=== PATIENT | female | born 1955 | race Caucasian/White ===

== ENCOUNTER 2016-12-13 09:05 | Observation (INO) ==
--- NOTE | 2016-12-13 09:36 | Emergency Department Note ---
Disposition Clinical Impression: Confusion and disorientation Disposition: Admitted As Inpatient Condition: Fair Altered Mental Status HPI - General Chief Complaint: ED General Medical Stated Complaint: EPISODES OF CONFUSION Source: patient Mode of arrival: ambulatory Limitations: no limitations Nursing Notes Reviewed: Yes Vital Signs Reviewed: Yes - History of Present Illness complaint: confusion Onset (ago): day(s) (2) Timing confirmed by: family member Pain Severity: none Pain Scale: 0 Context: history of similar presentation, other (recent carotid endarterectomy) Associated symptoms: Reports: chest pain, difficulty walking. Denies: cough, diaphoresis, fever, chills, headaches, loss of appetite, malaise, nausea/ vomiting, rash, shortness of breath, syncope, weakness, foul smelling urine, diarrhea, incontinence - Related Data Home Medications Medication Instructions Recorded Confirmed Amlodipine [Amlodipine Besylate] 5 mg PO BID 08/21/15 12/13/16 Atorvastatin [Lipitor] 40 mg PO HS 08/21/15 12/13/16 Clopidogrel [Plavix] 75 mg PO DAILY 08/21/15 12/13/16 Gabapentin [Neurontin] 300 mg PO TID 08/21/15 12/13/16 Metoprolol [Lopressor] 50 mg PO BID 08/21/15 12/13/16 Omeprazole [PriLOSEC] 20 mg PO BIDAC 08/21/15 12/13/16 Bupropion HCl [Wellbutrin Xl] 300 mg PO DAILY 12/13/16 12/13/16 Loratadine [Claritin] 10 mg PO DAILY 12/13/16 12/13/16 Previous Rx's Medication Instructions Recorded Albuterol Sulfate [Albuterol 1 - 2 puff IH Q4-6H #1 inhaler 06/27/16 Inhaler] Allergies Allergy/AdvReac Type Severity Reaction Status Date / Time Sulfa (Sulfonamide AdvReac Itching Verified 08/21/15 14:50 Antibiotics) All systems ED: reviewed and negative except as stated. Constitutional: Reports: weakness. Denies: fever, chills Eyes: Denies: eye pain ENT ED: Denies: ear pain, throat pain Cardiovascular: Denies: chest pain Respiratory: Denies: cough, dyspnea Gastrointestinal: Denies: nausea, vomiting Genitourinary: Denies: urgency, dysuria Musculoskeletal: Denies: neck pain Integumentary: Denies: abrasion Neurological: Reports: confusion, abnormal gait. Denies: headache Psychiatric: Denies: anxiety Endocrine: Denies: heat or cold intolerance Hematological/Lymphatic: Denies: easy bleeding Allergic/Immunologic: Denies: urticaria Past Medical History - Past Medical History Attestation: Yes The following information was validated with the patient. 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: bilateral tubal ligation - Social History Smoking Status: Former smoker Smokeless Tobacco Status: No Alcohol use: Reports: none Drug use: Reports: none Physical Exam - General Limitations: no limitations General appearance: alert, in no apparent distress, anxious, other (At times mildly confused) - Head Head exam: atraumatic, normocephalic, normal inspection - Eye Eye exam: Present: normal appearance, PERRL, EOMI - ENT ENT exam: normal exam, normal oropharynx, mucous membranes moist, normal external ear exam - Neck Neck exam: Present: normal inspection, full ROM, trachea midline, other ( surgical incision intact withoutredness or drainage) - Chest Chest inspection: Present: normal inspection, symmetric chest wall rise - Respiratory Respiratory exam: Present: normal lung sounds bilaterally - Cardiovascular Cardiovascular exam: Present: regular rate, normal rhythm, normal heart sounds - Abdominal Exam Abdominal exam: Present: soft, Non-Tender, normal bowel sounds. Absent: mass, pulsatile mass - Extremities Exam Extremities exam: Present: normal inspection, full ROM, normal capillary refill. Absent: tenderness, joint swelling - Expanded Lower Extremity Exam Neurovascular/Tendon exam: Present: normal capillary refill, normal fine/light touch Gait: observed and normal - Back Exam Back exam: Present: normal inspection, full ROM. Absent: muscle spasm - Neurological Exam Neurological exam: Present: alert, oriented X3, CN II-XII intact, normal gait - Psychiatric Psychiatric exam: Present: normal affect, normal mood - Skin Skin exam: Present: warm, dry, intact, normal color Course Course Narrative: Patient presents to the emergency room with family at bedside with ataxia noted which appears to be new for her last known well time is greater than 24 hours patient has previous time when she is confused she has recently been to [facility] patient states that she just does not feel right she has had some intermittent chest pain she was due to have a heart cath family notes that her that with her changes they will continue back to [address] [place] [address] but they brought her here instead patient is here for evaluation Vital Signs Temperature 97.9 F 12/13/16 09:07 Pulse Rate 67 12/13/16 09:07 Respiratory Rate 16 12/13/16 09:07 Blood Pressure 151/88 12/13/16 09:07 O2 Sat by Pulse Oximetry 100 12/13/16 09:07 Temperature 98.3 F 12/15/16 18:30 Pulse Rate 76 12/15/16 18:30 Respiratory Rate 18 12/15/16 18:30 Blood Pressure 129/82 12/15/16 18:30 O2 Sat by Pulse Oximetry 91 12/15/16 18:30 Oxygen Delivery Oxygen Delivery Room Air Altered Mental Status - Lab Data Result diagrams: 12/15/16 04:10 12/15/16 04:10 Lab Results 12/13/16 12/13/16 12/13/16 Range/Units 09:16 09:40 09:40 WBC (4.3-11.1) K/mcL RBC (3.82-4.97) M/mcL Hgb (11.5-15.4) g/dL Hct (35.3-44.9) % MCV (83.0-100.0) fL MCH (28.0-33.3) pg MCHC (31.6-35.5) g/dL RDW (11.5-14.5) % Plt Count (140-400) K/mcL MPV (9.4-12.4) fL Immature Gran % (0-4) % Seg Neutrophils % % Lymphocytes % % Monocytes % % Eosinophils % % Basophils % % Neutrophils # (1.6-8.9) K/mcL Lymphocytes # (0.6-4.6) K/mcL Monocytes # (0.0-1.3) K/mcL Eosinophils # (0.0-0.6) K/mcL Basophils # (0.0-0.2) K/mcL PT 12.0 (9.4-12.1) Seconds INR 1.1 APTT (26.0-36.0) Seconds ABG pH 7.40 (7.32-7.45) pH Units ABG pCO2 37 (35-45) mmHg ABG pO2 76 L (85-104) mmHg ABG HCO3 23.1 (21-27) mEQ/L ABG Total CO2 24.3 (20-26) mEq/L ABG O2 Saturation 95 (95-98) % ABG Base Excess -1.6 (-2.0 to 3.0) mEq/L VBG Lactic Acid (0.5-2.2) mmol/L Inspired O2 21 % Sodium (136-145) mEq/L Potassium (3.5-4.5) mEq/L Chloride (98-109) mEq/L Carbon Dioxide (19-29) mEq/L BUN (7-20) mg/dL Creatinine (0.57-1.11) mg/dL Est GFR ( Amer) (> 60) Est GFR (Non-Af Amer) (> 60) BUN/Creatinine Ratio (6-26) Glucose (70-99) mg/dL Calculated Osmolality (280-300) Calcium (8.6-10.8) mg/dL Total Bilirubin (0.2-1.2) mg/dL AST (5-34) Units/L ALT (0-55) Units/L Alkaline Phosphatase (38-126) Units/L Ammonia (18-72) mcmol/L Troponin I 0.01 (0-0.03) ng/mL Serum Total Protein (6.0-8.3) g/dL Albumin (3.5-5.0) g/dL Globulin (2.4-3.5) g/dL Albumin/Globulin Ratio (1.1-2.2) TSH (0.350-4.840) mcIU/mL Urine Color (Yellow) Urine Clarity (Clear) Urine pH (5.0-8.0) pH Units Ur Specific [place] (1.010-1.025) Urine Protein (Neg-Trace) mg/dL Urine Glucose (UA) (Normal) mg/dL Urine Ketones (Negative) mg/dL Urine Blood (Negative) Urine Nitrite (Negative) Urine Bilirubin (Negative) Urine Urobilinogen (Normal) mg/dL Ur Leukocyte Esterase (Negative) Urine Microscopic WBC (0-3) per hpf Ur Squamous Epith Cells (None-Few) per lpf Urine Bacteria (None-Few) per hpf Ur Culture Indicated? (NO) Salicylates (15-30) mg/dL Urine Opiates Screen (Djfnqm=154) ng/mL Ur Oxycodone Screen (Cutoff= 100) ng/mL Acetaminophen (10-30) mcg/mL Ur Barbiturates Screen (Arwlwf=190) ng/mL Ur Phencyclidine Scrn (Cutoff=25) ng/mL Ur Amphetamines Screen (Dbzlmt=5553) ng/mL U Benzodiazepines Scrn (Yiuwit=809) ng/mL Urine Cocaine Screen (Cutoff= 300) ng/mL U Marijuana (THC) Screen (Cutoff = 50) ng/mL Ethyl Alcohol (0-10) mg/dL 12/13/16 12/13/16 12/13/16 Range/Units 09:40 09:40 09:40 WBC 5.7 (4.3-11.1) K/mcL RBC 3.41 L (3.82-4.97) M/mcL Hgb 9.1 L (11.5-15.4) g/dL Hct 28.6 L (35.3-44.9) % MCV 83.9 (83.0-100.0) fL MCH 26.7 L (28.0-33.3) pg MCHC 31.8 (31.6-35.5) g/dL RDW 14.7 H (11.5-14.5) % Plt Count 330 (140-400) K/mcL MPV 9.9 (9.4-12.4) fL Immature Gran % 0.2 (0-4) % Seg Neutrophils % 65.1 % Lymphocytes % 22.6 % Monocytes % 5.6 % Eosinophils % 5.8 % Basophils % 0.7 % Neutrophils # 3.7 (1.6-8.9) K/mcL Lymphocytes # 1.3 (0.6-4.6) K/mcL Monocytes # 0.3 (0.0-1.3) K/mcL Eosinophils # 0.3 (0.0-0.6) K/mcL Basophils # 0.0 (0.0-0.2) K/mcL PT (9.4-12.1) Seconds INR APTT 26.3 (26.0-36.0) Seconds ABG pH (7.32-7.45) pH Units ABG pCO2 (35-45) mmHg ABG pO2 (85-104) mmHg ABG HCO3 (21-27) mEQ/L ABG Total CO2 (20-26) mEq/L ABG O2 Saturation (95-98) % ABG Base Excess (-2.0 to 3.0) mEq/L VBG Lactic Acid (0.5-2.2) mmol/L Inspired O2 % Sodium 138 (136-145) mEq/L Potassium 4.4 (3.5-4.5) mEq/L Chloride 104 (98-109) mEq/L Carbon Dioxide 23 (19-29) mEq/L BUN 25 H (7-20) mg/dL Creatinine 1.54 H (0.57-1.11) mg/dL Est GFR ( Amer) 41 L (> 60) Est GFR (Non-Af Amer) 34 L (> 60) BUN/Creatinine Ratio 16 (6-26) Glucose 87 (70-99) mg/dL Calculated Osmolality 290 (280-300) Calcium 9.9 (8.6-10.8) mg/dL Total Bilirubin 0.3 (0.2-1.2) mg/dL AST 17 (5-34) Units/L ALT 12 (0-55) Units/L Alkaline Phosphatase 89 (38-126) Units/L Ammonia (18-72) mcmol/L Troponin I (0-0.03) ng/mL Serum Total Protein 7.4 (6.0-8.3) g/dL Albumin 4.1 (3.5-5.0) g/dL Globulin 3.3 (2.4-3.5) g/dL Albumin/Globulin Ratio 1.2 (1.1-2.2) TSH (0.350-4.840) mcIU/mL Urine Color (Yellow) Urine Clarity (Clear) Urine pH (5.0-8.0) pH Units Ur Specific [place] (1.010-1.025) Urine Protein (Neg-Trace) mg/dL Urine Glucose (UA) (Normal) mg/dL Urine Ketones (Negative) mg/dL Urine Blood (Negative) Urine Nitrite (Negative) Urine Bilirubin (Negative) Urine Urobilinogen (Normal) mg/dL Ur Leukocyte Esterase (Negative) Urine Microscopic WBC (0-3) per hpf Ur Squamous Epith Cells (None-Few) per lpf Urine Bacteria (None-Few) per hpf Ur Culture Indicated? (NO) Salicylates (15-30) mg/dL Urine Opiates Screen (Nuocke=972) ng/mL Ur Oxycodone Screen (Cutoff= 100) ng/mL Acetaminophen (10-30) mcg/mL Ur Barbiturates Screen (Xxmdrz=002) ng/mL Ur Phencyclidine Scrn (Cutoff=25) ng/mL Ur Amphetamines Screen (Uzgspa=6610) ng/mL U Benzodiazepines Scrn (Xiiali=305) ng/mL Urine Cocaine Screen (Cutoff= 300) ng/mL U Marijuana (THC) Screen (Cutoff = 50) ng/mL Ethyl Alcohol (0-10) mg/dL 12/13/16 12/13/16 12/13/16 Range/Units 09:40 09:40 09:40 WBC (4.3-11.1) K/mcL RBC (3.82-4.97) M/mcL Hgb (11.5-15.4) g/dL Hct (35.3-44.9) % MCV (83.0-100.0) fL MCH (28.0-33.3) pg MCHC (31.6-35.5) g/dL RDW (11.5-14.5) % Plt Count (140-400) K/mcL MPV (9.4-12.4) fL Immature Gran % (0-4) % Seg Neutrophils % % Lymphocytes % % Monocytes % % Eosinophils % % Basophils % % Neutrophils # (1.6-8.9) K/mcL Lymphocytes # (0.6-4.6) K/mcL Monocytes # (0.0-1.3) K/mcL Eosinophils # (0.0-0.6) K/mcL Basophils # (0.0-0.2) K/mcL PT (9.4-12.1) Seconds INR APTT (26.0-36.0) Seconds ABG pH (7.32-7.45) pH Units ABG pCO2 (35-45) mmHg ABG pO2 (85-104) mmHg ABG HCO3 (21-27) mEQ/L ABG Total CO2 (20-26) mEq/L ABG O2 Saturation (95-98) % ABG Base Excess (-2.0 to 3.0) mEq/L VBG Lactic Acid 1.0 (0.5-2.2) mmol/L Inspired O2 % Sodium (136-145) mEq/L Potassium (3.5-4.5) mEq/L Chloride (98-109) mEq/L Carbon Dioxide (19-29) mEq/L BUN (7-20) mg/dL Creatinine (0.57-1.11) mg/dL Est GFR ( Amer) (> 60) Est GFR (Non-Af Amer) (> 60) BUN/Creatinine Ratio (6-26) Glucose (70-99) mg/dL Calculated Osmolality (280-300) Calcium (8.6-10.8) mg/dL Total Bilirubin (0.2-1.2) mg/dL AST (5-34) Units/L ALT (0-55) Units/L Alkaline Phosphatase (38-126) Units/L Ammonia 17 L (18-72) mcmol/L Troponin I (0-0.03) ng/mL Serum Total Protein (6.0-8.3) g/dL Albumin (3.5-5.0) g/dL Globulin (2.4-3.5) g/dL Albumin/Globulin Ratio (1.1-2.2) TSH (0.350-4.840) mcIU/mL Urine Color (Yellow) Urine Clarity (Clear) Urine pH (5.0-8.0) pH Units Ur Specific [place] (1.010-1.025) Urine Protein (Neg-Trace) mg/dL Urine Glucose (UA) (Normal) mg/dL Urine Ketones (Negative) mg/dL Urine Blood (Negative) Urine Nitrite (Negative) Urine Bilirubin (Negative) Urine Urobilinogen (Normal) mg/dL Ur Leukocyte Esterase (Negative) Urine Microscopic WBC (0-3) per hpf Ur Squamous Epith Cells (None-Few) per lpf Urine Bacteria (None-Few) per hpf Ur Culture Indicated? (NO) Salicylates 8.6 L (15-30) mg/dL Urine Opiates Screen (Gdvuuq=868) ng/mL Ur Oxycodone Screen (Cutoff= 100) ng/mL Acetaminophen < 1.0 L (10-30) mcg/mL Ur Barbiturates Screen (Clflwv=952) ng/mL Ur Phencyclidine Scrn (Cutoff=25) ng/mL Ur Amphetamines Screen (Ovddlw=6832) ng/mL U Benzodiazepines Scrn (Dmpesk=576) ng/mL Urine Cocaine Screen (Cutoff= 300) ng/mL U Marijuana (THC) Screen (Cutoff = 50) ng/mL Ethyl Alcohol < 10 (0-10) mg/dL 12/13/16 12/13/16 12/13/16 Range/Units 09:40 10:27 10:27 WBC (4.3-11.1) K/mcL RBC (3.82-4.97) M/mcL Hgb (11.5-15.4) g/dL Hct (35.3-44.9) % MCV (83.0-100.0) fL MCH (28.0-33.3) pg MCHC (31.6-35.5) g/dL RDW (11.5-14.5) % Plt Count (140-400) K/mcL MPV (9.4-12.4) fL Immature Gran % (0-4) % Seg Neutrophils % % Lymphocytes % % Monocytes % % Eosinophils % % Basophils % % Neutrophils # (1.6-8.9) K/mcL Lymphocytes # (0.6-4.6) K/mcL Monocytes # (0.0-1.3) K/mcL Eosinophils # (0.0-0.6) K/mcL Basophils # (0.0-0.2) K/mcL PT (9.4-12.1) Seconds INR APTT (26.0-36.0) Seconds ABG pH (7.32-7.45) pH Units ABG pCO2 (35-45) mmHg ABG pO2 (85-104) mmHg ABG HCO3 (21-27) mEQ/L ABG Total CO2 (20-26) mEq/L ABG O2 Saturation (95-98) % ABG Base Excess (-2.0 to 3.0) mEq/L VBG Lactic Acid (0.5-2.2) mmol/L Inspired O2 % Sodium (136-145) mEq/L Potassium (3.5-4.5) mEq/L Chloride (98-109) mEq/L Carbon Dioxide (19-29) mEq/L BUN (7-20) mg/dL Creatinine (0.57-1.11) mg/dL Est GFR ( Amer) (> 60) Est GFR (Non-Af Amer) (> 60) BUN/Creatinine Ratio (6-26) Glucose (70-99) mg/dL Calculated Osmolality (280-300) Calcium (8.6-10.8) mg/dL Total Bilirubin (0.2-1.2) mg/dL AST (5-34) Units/L ALT (0-55) Units/L Alkaline Phosphatase (38-126) Units/L Ammonia (18-72) mcmol/L Troponin I (0-0.03) ng/mL Serum Total Protein (6.0-8.3) g/dL Albumin (3.5-5.0) g/dL Globulin (2.4-3.5) g/dL Albumin/Globulin Ratio (1.1-2.2) TSH 1.584 (0.350-4.840) mcIU/mL Urine Color Yellow (Yellow) Urine Clarity Clear (Clear) Urine pH 6.0 (5.0-8.0) pH Units Ur Specific [place] 1.020 (1.010-1.025) Urine Protein 30 H (Neg-Trace) mg/dL Urine Glucose (UA) Normal (Normal) mg/dL Urine Ketones Negative (Negative) mg/dL Urine Blood Negative (Negative) Urine Nitrite Negative (Negative) Urine Bilirubin Negative (Negative) Urine Urobilinogen Normal (Normal) mg/dL Ur Leukocyte Esterase Negative (Negative) Urine Microscopic WBC 0-3 (0-3) per hpf Ur Squamous Epith Cells Few (None-Few) per lpf Urine Bacteria Few (None-Few) per hpf Ur Culture Indicated? NO (NO) Salicylates (15-30) mg/dL Urine Opiates Screen Negative (Wxiwhl=869) ng/mL Ur Oxycodone Screen Negative (Cutoff= 100) ng/mL Acetaminophen (10-30) mcg/mL Ur Barbiturates Screen Negative (Hntwbi=562) ng/mL Ur Phencyclidine Scrn Negative (Cutoff=25) ng/mL Ur Amphetamines Screen Negative (Vfuzpo=4660) ng/mL U Benzodiazepines Scrn Negative (Bitjnq=870) ng/mL Urine Cocaine Screen Negative (Cutoff= 300) ng/mL U Marijuana (THC) Screen Negative (Cutoff = 50) ng/mL Ethyl Alcohol (0-10) mg/dL - Radiology Data Radiology results reviewed: Yes I reviewed the patient's radiology results. ITS Impressions Chest X-Ray 12/13/16 09:15 IMPRESSION: No acute cardiopulmonary disease. D/ / David Wesley MD / David Wesley MD Interpreting Provider: David Wesley MD Head CT 12/13/16 09:15 IMPRESSION: 1. No acute intracranial abnormality. 2. Mild chronic small vessel ischemic changes. D/ / David Ames MD / David Ames MD Interpreting Provider: David Ames MD - EKG Data EKG attestation: Yes I reviewed and interpreted this EKG. EKG results narrative: Sinus rhythm rate 63 pr187 qrs 93 QT 432 excess 54 TPA Checklist - LKW: 3-4.5 hrs Add. Contraindications Patient/family understanding: The patient/family members have been counseled and understood the risk, benefit , and alternatives of treatment. Critical Care Time Critical Care Time: No
[2016-12-13 10:03] LABS: Basophils % 0.7 %; Eosinophils # 0.3 K/mcL (0.0-0.6); Eosinophils % 5.8 %; Hematocrit 28.6 % (35.3-44.9); Hemoglobin 9.1 g/dL (11.5-15.4); Immature Granulocytes % 0.2 % (0-4); Lymphocytes # 1.3 K/mcL (0.6-4.6); Lymphocytes % 22.6 %; Mean Corpuscular HGB Conc 31.8 g/dL (31.6-35.5); Mean Corpuscular Hemoglobin 26.7 pg (28.0-33.3); Mean Corpuscular Volume 83.9 fL (83.0-100.0); Mean Platelet Volume 9.9 fL (9.4-12.4); Monocytes # 0.3 K/mcL (0.0-1.3); Monocytes % 5.6 %; Neutrophils # 3.7 K/mcL (1.6-8.9); Platelet Count 330 K/mcL (140-400); Red Blood Count 3.41 M/mcL (3.82-4.97); Red Cell Distribution Width 14.7 % (11.5-14.5); Segmented Neutrophils % 65.1 %
[2016-12-13 10:08] LABS: INR 1.1
[2016-12-13 10:19] LABS: Acetaminophen < 1.0 mcg/mL (10-30); Ethanol < 10 mg/dL (0-10); Salicylate 8.6 mg/dL (15-30)
[2016-12-13 10:19] LABS: ABG Base Excess -1.6 mEq/L (-2.0 to 3.0); ABG HCO3 23.1 mEQ/L (21-27); ABG Oxygen Saturation 95 % (95-98); ABG PO2 76 mmHg (85-104); ABG TCO2 24.3 mEq/L (20-26); Blood Gas FiO2 21 %
[2016-12-13 10:21] LABS: Albumin 4.1 g/dL (3.5-5.0); Albumin/Globulin Ratio 1.2 (1.1-2.2); Bilirubin,Total 0.3 mg/dL (0.2-1.2); Calcium 9.9 mg/dL (8.6-10.8); Globulin 3.3 g/dL (2.4-3.5); Potassium 4.4 mEq/L (3.5-4.5); Total Protein 7.4 g/dL (6.0-8.3)
[2016-12-13 10:31] LABS: Bilirubin,Urine Negative (Negative); Blood,Urine Negative (Negative); Clarity,Urine Clear (Clear); Color,Urine Yellow (Yellow); Glucose,Urine (UA) Normal (Normal); Ketones,Urine Negative (Negative); Leukocyte Esterase,Urine Negative (Negative); Nitrite,Urine Negative (Negative); Protein,Urine 30 mg/dL (Neg-Trace); Urobilinogen,Urine Normal (Normal)
[2016-12-13 10:45] LABS: Amphetamine Screen,Urine Negative ng/mL (Cutoff=1000); Barbiturate Screen,Urine Negative ng/mL (Cutoff=200); Benzodiazepines Screen,Urine Negative ng/mL (Cutoff=200); Cannabinoid Screen,Urine Negative ng/mL (Cutoff = 50); Cocaine Screen,Urine Negative ng/mL (Cutoff= 300); Opiate Screen,Urine Negative ng/mL (Cutoff=300); Phencyclidine Screen,Urine Negative ng/mL (Cutoff=25)
[2016-12-13 10:51] LABS: Bacteria,Urine Few per hpf (None-Few); Squamous Epithelial Cell,Urine Few per lpf (None-Few); WBC,Urine 0-3 per hpf (0-3)
[2016-12-13 11:48] LABS: ABG PCO2 37 mmHg (35-45)
[2016-12-13] MEDS ORDERED: Naloxone 0.4 MG/ML INJ IVP PRN (12:06)
[2016-12-13] MEDS ORDERED: Ondansetron ODT 4 MG TAB.RAPDIS SL PRN (12:06)
[2016-12-13] MEDS: Gabapentin 300 MG CAPSULE PO SCH ×2 (14:40→20:15)
--- NOTE | 2016-12-13 16:53 | Internal Med History&Physical ---
Date of Encounter: 12/13/16 Time of Encounter: 16:15 Assessment and Plan (1) Confusion and disorientation Current visit: Yes Status: Acute We will do MMSE exam. Suspect underlying dementia with possible superimposed metabolic and/or medication effects. (2) Anemia Current visit: Yes Status: Acute Hemoglobin was normal at 14.07 June 2016. We will order anemia testing in a.m. Qualifiers: Anemia type: unspecified type Qualified Code(s): D64.9 - Anemia, unspecified (3) Azotemia Current visit: Yes Status: Acute Creatinine was normal at 0.97 on 07/05/2016. We will order abdominal CT to further evaluate (4) COPD (chronic obstructive pulmonary disease) Current visit: Yes Status: Chronic Will order chest CT to further evaluate. We will check room air oximetry prior to discharge. Qualifiers: COPD type: unspecified COPD Qualified Code(s): J44.9 - Chronic obstructive pulmonary disease, unspecified (5) Hypertension Current visit: Yes Status: Chronic Continue Norvasc and Lopressor. Qualifiers: Hypertension type: essential hypertension Qualified Code(s): I10 - Essential (primary) hypertension Internal Medicine - H&P: HPI Chief complaint: Confusion, lightheaded Admitted From: Home Plans for Post Hospital Care: Home History of present illness: Ms. Carney is a 60 year old female who came to the hospital after family noted she was more confused and disoriented. She states she felt "dizzy" which she describes as lightheaded but denies vertigo. She states she feels disoriented. She was evaluated in emergency room and admitted to [facility] floor for ongoing care needs. She has neurologic history pertinent for left carotid endarterectomy at [facility] . She denies large distribution strokes or seizures. She admits she seems to be getting more forgetful overall but she denies any specific weakness of an arm or leg or acute visual changes. Past Med Surg Social Fam HX - Past Medical History Medical history: COPD, coronary artery disease, GERD, hyperlipidemia, hypertension, myocardial infarction, renal disease, TIA Psychiatric history: anxiety, depression - Past Surgical History Surgical History: appendectomy, carotid endarterectomy, orthopedic, other - Social History Smoking Status: Former smoker Smokeless Tobacco Status: No Alcohol use: none Drug use: none Internal Medicine - H&P: Meds Amlodipine [Amlodipine Besylate] 5 mg PO BID 08/21/15 [History] Atorvastatin [Lipitor] 40 mg PO HS 08/21/15 [History] Clopidogrel [Plavix] 75 mg PO DAILY 08/21/15 [History] Gabapentin [Neurontin] 300 mg PO TID 08/21/15 [History] Metoprolol [Lopressor] 50 mg PO BID 08/21/15 [History] Omeprazole [PriLOSEC] 20 mg PO BIDAC 08/21/15 [History] Albuterol Sulfate [Albuterol Inhaler] 1 - 2 puff IH Q4-6H #1 inhaler 06/27/16 [ Rx] Bupropion HCl [Wellbutrin Xl] 300 mg PO DAILY 12/13/16 [History] Loratadine [Claritin] 10 mg PO DAILY 12/13/16 [History] Allergies Sulfa (Sulfonamide Antibiotics) Adverse Reaction (Verified 08/21/15 14:50) Itching All Systems PM: A 10-system review of systems was performed and is negative for pertinent findings except as documented above in the HPI. Review of systems: Gen.: She states her weight has been stable the past few months Cardiovascular: She has history of hypertension. She states she had a coronary stent placed over 10 years ago but does not remember details. She has had left subclavian artery stent placed. She had bilateral renal artery stents placed but states they are not functioning properly. She denies [place] heart failure DVT or pulmonary embolus Respiratory: She states she quit smoking July 2016 after starting at age 21. She smoked up to 1-1/2 packs per day. She claims she has a diagnosis of COPD but does not recall having PFTs done. She does get dyspneic on exertion. GI: She states she had partial nephrectomy but does not remember details. She denies a diagnosis of chronic kidney disease Neurologic: As per history of present illness Endocrine: She has hyperlipidemia but denies diabetes or thyroid disease Hematology/oncology: She is been told she is anemic but does not know details. She denies internal malignancies Psychiatric: She denies anxiety depression or other mental health issues Musk skeletal: She has DJD but denies gout or other bone joint or muscle disorders. - Constitutional Vitals: Temp Pulse Resp BP Pulse Ox 98.4 F 76 16 173/86 97 12/13/16 12:41 12/13/16 12:41 12/13/16 15:59 12/13/16 12:41 12/13/16 15:59 Exam: Gen.: She is well-developed well-nourished female who appears in no acute distress at present time HEENT: Head is atraumatic and normal cephalic. Eyes: EOMI. There is no scleral icterus. Mouth: Mucosa is moist. Neck: Supple and nontender. There is no thyromegaly or adenopathy noted. Heart: Regular without murmurs gallops or ectopics. Lungs: No wheezes or crackles are heard. Abdomen: Soft and nontender. No masses or guarding are noted. Extremities: She has mild DJD changes of her hands. There is no cyanosis edema or clubbing noted. Dorsalis pedis and posttibial pulses are 1-2 over 2 bilaterally. Neurologic: Mental status: She is talkative but a fair to poor historian. She does not remember many details of her past medical history. Cranial nerves: Smile is symmetric. Forehead wrinkles bilaterally. Tongue protrudes midline. EOMI. Motor: There is no pronator drift. Cerebellar: Finger to nose is intact bilaterally. Skin: Warm and dry Internal Med - H&P Results - Labs CBC & Chem 7: 12/13/16 09:40 12/13/16 09:40 Labs: Cardiac Enzymes 12/13/16 Range/Units 15:40 Troponin I 0.01 (0-0.03) ng/mL
[2016-12-14 06:08] LABS: Basophils % 0.4 %; Eosinophils # 0.5 K/mcL (0.0-0.6); Hematocrit 24.8 % (35.3-44.9); Hemoglobin 7.8 g/dL (11.5-15.4); Immature Granulocytes % 0.2 % (0-4); Lymphocytes # 1.6 K/mcL (0.6-4.6); Lymphocytes % 36.1 %; Mean Corpuscular HGB Conc 31.5 g/dL (31.6-35.5); Mean Corpuscular Hemoglobin 26.5 pg (28.0-33.3); Mean Corpuscular Volume 84.4 fL (83.0-100.0); Mean Platelet Volume 10.1 fL (9.4-12.4); Monocytes # 0.5 K/mcL (0.0-1.3); Neutrophils # 1.9 K/mcL (1.6-8.9); Platelet Count 251 K/mcL (140-400); Red Blood Count 2.94 M/mcL (3.82-4.97); Red Cell Distribution Width 14.9 % (11.5-14.5); Segmented Neutrophils % 43.3 %
[2016-12-14 07:00] LABS: Magnesium 2.3 mg/dL (1.6-2.6); Phosphorous 3.9 mg/dL (2.3-4.7); Potassium 4.5 mEq/L (3.5-4.5)
[2016-12-14] MEDS: amLODIPine 5 MG TABLET PO SCH (08:45)
[2016-12-14] MEDS: Gabapentin 300 MG CAPSULE PO SCH ×3 (08:45→22:24)
[2016-12-14] MEDS: BuPROPion XL (24 HR) 150 MG TABLET PO SCH (08:46)
--- NOTE | 2016-12-14 08:51 | Electrocardiograph Report ---
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
[2016-12-14] MEDS ORDERED: Loratadine 10 MG TABLET PO SCH (09:00)
--- NOTE | 2016-12-14 10:06 | Internal Med Progress Note ---
Date of Encounter: 12/14/16 Time of Encounter: 09:55 - Assessment and plan (1) Confusion and disorientation Current Visit: Yes Status: Acute Assessment and plan: December 14. It appears she has mild dementia. Will start Aricept. (2) Anemia Current Visit: Yes Status: Acute Assessment and plan: December 14. Anemia testing is pending. Hemoglobin has decreased to 7.8 with IV fluid administration. Recheck labs in a.m. Qualifiers: Anemia type: unspecified type Qualified Code(s): D64.9 - Anemia, unspecified (3) Azotemia Current Visit: Yes Status: Acute Assessment and plan: December 14. Creatinine has improved to 1.36 with estimated GFR 39. Abdominal/ pelvic CT showed bladder distention. We will do bladder scan and possibly insert catheter. Recheck labs in a.m. (4) COPD (chronic obstructive pulmonary disease) Current Visit: Yes Status: Chronic Assessment and plan: December 14. Chest CT showed findings consistent with emphysema. Results of 6 minute walk are pending. Anticipate discharge home tomorrow. Qualifiers: COPD type: unspecified COPD Qualified Code(s): J44.9 - Chronic obstructive pulmonary disease, unspecified (5) Hypertension Current Visit: Yes Status: Chronic Assessment and plan: December 14. Continue Norvasc and Lopressor. Qualifiers: Hypertension type: essential hypertension Qualified Code(s): I10 - Essential (primary) hypertension - Subjective Interval history: December 14. She has no new complaints. - Constitutional Vitals: Temp Pulse Resp BP Pulse Ox 98.5 F 68 14 116/78 94 12/14/16 06:33 12/14/16 08:44 12/14/16 08:44 12/14/16 08:44 12/14/16 08:44 Exam: She is resting comfortably in bed. Her affect is cheerful. She answers questions generally appropriate. I reviewed her MMSE was score of 21/30. I reviewed her chest and abdomen/pelvis CT report. Internal Medicine: Result - Labs CBC & Chem 7: 12/14/16 05:30 12/14/16 05:30 Labs: Short CBC 12/14/16 Range/Units 05:30 WBC 4.5 (4.3-11.1) K/mcL Hgb 7.8 L (11.5-15.4) g/dL Hct 24.8 L (35.3-44.9) % Plt Count 251 (140-400) K/mcL Neutrophils # 1.9 (1.6-8.9) K/mcL BMP 12/14/16 05:30 Sodium 139 Potassium 4.5 Chloride 108 Carbon Dioxide 23 BUN 25 H Creatinine 1.36 H Glucose 87 Calcium 9.0 Cardiac Enzymes 12/13/16 12/13/16 Range/Units 15:40 21:33 Troponin I 0.01 0.01 (0-0.03) ng/mL - ABG Interpretation ABG results: ABG ABG pH 7.40 pH Units (7.32-7.45) 12/13/16 09:16 ABG pCO2 37 mmHg (35-45) 12/13/16 09:16 ABG pO2 76 mmHg (85-104) L 12/13/16 09:16 ABG O2 Saturation 95 % (95-98) 12/13/16 09:16 PT/INR, D-dimer PT 12.0 Seconds (9.4-12.1) 12/13/16 09:40 - Impressions Impressions Abdomen/Pelvis CT 12/13/16 17:07 IMPRESSION: 1. Study is limited without the use of IV contrast. Otherwise no acute findings within the chest, abdomen or pelvis. 2. Severe emphysematous changes. 3. Postsurgical changes from prior right partial nephrectomy. 4. Large amount of stool seen throughout the right colon. 5. Markedly distended bladder. 6. Focal fusiform infrarenal abdominal aortic aneurysm measuring up to 3.1 cm. Please see recommendations below. RECOMMENDATIONS: Managing Abdominal Aortic Aneurysms 2.6-2.9 cm: 5 year follow up. 3.0-3.4 cm: 3 year follow up 3.5-3.9 cm: 1 year follow up. 4.0-4.4 cm: 1 year follow up. Recommend vascular consultation. 4.5-5.4 cm: 6 month follow up. Recommend vascular consultation. Greater than or equal to 5.5 cm: Referral to vascular surgeon. Reference: Rico et al. The care of patients with an abdominal aortic aneurysm: The Society of Vascular Surgery practice guidelines. Journal of Vascular Surgery. Vol 50, Number 85. Cami et al. Managing Incidental Findings on Abdominal and Pelvic CT and MRI, Part 2: White Paper of the ACR Incidental Findings Committee II on Vascular Findings. J Am Jacob Radiol 2013;10:789-794 D/ / 12/13/2016 20:21:40 Shade Perez MD / sudhir Interpreting Provider: Shade Perez MD Chest CT 12/13/16 17:07 IMPRESSION: 1. Study is limited without the use of IV contrast. Otherwise no acute findings within the chest, abdomen or pelvis. 2. Severe emphysematous changes. 3. Postsurgical changes from prior right partial nephrectomy. 4. Large amount of stool seen throughout the right colon. 5. Markedly distended bladder. 6. Focal fusiform infrarenal abdominal aortic aneurysm measuring up to 3.1 cm. Please see recommendations below. RECOMMENDATIONS: Managing Abdominal Aortic Aneurysms 2.6-2.9 cm: 5 year follow up. 3.0-3.4 cm: 3 year follow up 3.5-3.9 cm: 1 year follow up. 4.0-4.4 cm: 1 year follow up. Recommend vascular consultation. 4.5-5.4 cm: 6 month follow up. Recommend vascular consultation. Greater than or equal to 5.5 cm: Referral to vascular surgeon. Reference: Rico et al. The care of patients with an abdominal aortic aneurysm: The Society of Vascular Surgery practice guidelines. Journal of Vascular Surgery. Vol 50, Number 85. Cami et al. Managing Incidental Findings on Abdominal and Pelvic CT and MRI, Part 2: White Paper of the ACR Incidental Findings Committee II on Vascular Findings. J Am Jacob Radiol 2013;10:789-794 D/ / 12/13/2016 20:21:40 Shade Perez MD / sudhir Interpreting Provider: Shade Perez MD Consult Discharge Plan - Plan Referrals: Helio Alexander MD [Primary Care Provider] -
[2016-12-14 10:09] LABS: % Iron Saturation 4 % (15-50); Iron 14 mcg/dL (50-170); Transferrin 275 mg/dL (180-382)
[2016-12-14 10:26] LABS: Ferritin 9 ng/ml (5-204)
[2016-12-14 10:43] LABS: Folate 15.1 ng/mL (7.0-31.4)
[2016-12-14] MEDS ORDERED: Acetaminophen 325 MG TABLET PO PRN (21:26)
[2016-12-15 04:54] LABS: Basophils % 0.4 %; Eosinophils # 0.4 K/mcL (0.0-0.6); Eosinophils % 7.4 %; Hemoglobin 7.5 g/dL (11.5-15.4); Immature Granulocytes % 0.2 % (0-4); Lymphocytes # 1.6 K/mcL (0.6-4.6); Lymphocytes % 29.7 %; Mean Corpuscular HGB Conc 32.6 g/dL (31.6-35.5); Mean Corpuscular Volume 82.7 fL (83.0-100.0); Monocytes # 0.7 K/mcL (0.0-1.3); Monocytes % 12.9 %; Neutrophils # 2.6 K/mcL (1.6-8.9); Platelet Count 220 K/mcL (140-400); Red Blood Count 2.78 M/mcL (3.82-4.97); Red Cell Distribution Width 14.7 % (11.5-14.5); Segmented Neutrophils % 49.4 %
[2016-12-15 05:01] LABS: Calcium 8.8 mg/dL (8.6-10.8); Potassium 4.6 mEq/L (3.5-4.5)
[2016-12-15] MEDS: amLODIPine 5 MG TABLET PO SCH (09:45)
[2016-12-15] MEDS: BuPROPion XL (24 HR) 150 MG TABLET PO SCH (09:45)
[2016-12-15] MEDS: Gabapentin 100 MG CAPSULE PO SCH ×3 (09:46→20:00)
--- NOTE | 2016-12-15 12:38 | Internal Med Progress Note ---
Date of Encounter: 12/15/16 Time of Encounter: 12:25 - Assessment and plan (1) Confusion and disorientation Current Visit: Yes Status: Acute Assessment and plan: December 14. It appears she has mild dementia. Will start Aricept. December 15. MMSE score was 21/30. Continue Aricept. (2) Anemia Current Visit: Yes Status: Acute Assessment and plan: December 14. Anemia testing is pending. Hemoglobin has decreased to 7.8 with IV fluid administration. Recheck labs in a.m. December 15. Anemia testing consistent with iron deficiency. Will order iron dextran. Continue Plavix. She denies NSAID use. I told her she could discuss with her PCP referral for repeat endoscopy. Qualifiers: Anemia type: unspecified type Qualified Code(s): D64.9 - Anemia, unspecified (3) Azotemia Current Visit: Yes Status: Acute Assessment and plan: December 14. Creatinine has improved to 1.36 with estimated GFR 39. Abdominal/ pelvic CT showed bladder distention. We will do bladder scan and possibly insert catheter. Recheck labs in a.m. December 15. She had urinary retention and now has a Donahue catheter. I will start her on Urecholine and discontinue Donahue in a.m. (4) COPD (chronic obstructive pulmonary disease) Current Visit: Yes Status: Chronic Assessment and plan: December 14. Chest CT showed findings consistent with emphysema. Results of 6 minute walk are pending. Anticipate discharge home tomorrow. December 15. 6 Minute walk showed satisfactory oxygenation. Qualifiers: COPD type: unspecified COPD Qualified Code(s): J44.9 - Chronic obstructive pulmonary disease, unspecified (5) Hypertension Current Visit: Yes Status: Chronic Assessment and plan: December 14. Continue Norvasc and Lopressor. Qualifiers: Hypertension type: essential hypertension Qualified Code(s): I10 - Essential (primary) hypertension - Subjective Interval history: December 14. She has no new complaints. December 15. She has no new complaints except some lower back pain. She reports she has had occasional arm muscle twitches and spilled coffee on her self earlier today. - Constitutional Vitals: Temp Pulse Resp BP Pulse Ox 89.5 F L 72 18 120/72 93 12/15/16 11:50 12/15/16 11:54 12/15/16 11:50 12/15/16 11:54 12/15/16 11:50 Exam: She is resting comfortably in bed and appears in no acute distress. She is appropriate in conversation. Reviewed her lab results with her showing worsening anemia. She denies NSAID use at home. She states a colonoscopy was done several years ago for anemia evaluation without pathology found. Internal Medicine: Result - Labs CBC & Chem 7: 12/15/16 04:10 12/15/16 04:10 Labs: Short CBC 12/15/16 Range/Units 04:10 WBC 5.3 (4.3-11.1) K/mcL Hgb 7.5 L (11.5-15.4) g/dL Hct 23.0 L (35.3-44.9) % Plt Count 220 (140-400) K/mcL Neutrophils # 2.6 (1.6-8.9) K/mcL BMP 12/15/16 04:10 Sodium 136 Potassium 4.6 H Chloride 105 Carbon Dioxide 22 BUN 24 H Creatinine 1.39 H Glucose 93 Calcium 8.8 - ABG Interpretation ABG results: ABG ABG pH 7.40 pH Units (7.32-7.45) 12/13/16 09:16 ABG pCO2 37 mmHg (35-45) 12/13/16 09:16 ABG pO2 76 mmHg (85-104) L 12/13/16 09:16 ABG O2 Saturation 95 % (95-98) 12/13/16 09:16 PT/INR, D-dimer PT 12.0 Seconds (9.4-12.1) 12/13/16 09:40 Consult Discharge Plan - Plan Referrals: Helio Alexander MD [Primary Care Provider] -
[2016-12-15] MEDS ORDERED: traMADol 50 MG TABLET PO PRN (13:49)
[2016-12-15] MEDS ORDERED: SODIUM CHLORIDE 0.9% IVPB ONE (15:00)
[2016-12-15] MEDS ORDERED: IRON DEXTRAN COMPLEX IVPB ONE (15:00)
[2016-12-16 04:52] LABS: Basophils % 0.4 %; Eosinophils # 0.5 K/mcL (0.0-0.6); Eosinophils % 9.1 %; Hematocrit 24.6 % (35.3-44.9); Immature Granulocytes % 0.2 % (0-4); Lymphocytes # 1.4 K/mcL (0.6-4.6); Lymphocytes % 25.4 %; Mean Corpuscular HGB Conc 32.5 g/dL (31.6-35.5); Mean Corpuscular Hemoglobin 27.2 pg (28.0-33.3); Mean Corpuscular Volume 83.7 fL (83.0-100.0); Mean Platelet Volume 10.6 fL (9.4-12.4); Monocytes # 0.6 K/mcL (0.0-1.3); Monocytes % 11.2 %; Platelet Count 210 K/mcL (140-400); Red Blood Count 2.94 M/mcL (3.82-4.97); Segmented Neutrophils % 53.7 %
[2016-12-16 05:05] LABS: BUN/Creatinine Ratio 20 (6-26); Blood Urea Nitrogen 22 mg/dL (7-20); Calcium 9.4 mg/dL (8.6-10.8); Carbon Dioxide 23 mEq/L (19-29); Chloride 107 mEq/L (98-109); Glucose 93 mg/dL (70-99); Osmolality,Calculated 291 (280-300); Potassium 4.6 mEq/L (3.5-4.5); Sodium 139 mEq/L (136-145); eGFR For African Americans > 60 (> 60); eGFR For Non-African Americans 51 (> 60)
[2016-12-16 07:07] VITALS: BP 151/81
[2016-12-16] MEDS: amLODIPine 5 MG TABLET PO SCH (08:18)
[2016-12-16] MEDS: BuPROPion XL (24 HR) 150 MG TABLET PO SCH (08:18)
[2016-12-16] MEDS: Gabapentin 100 MG CAPSULE PO SCH (08:18)
--- NOTE | 2016-12-16 09:39 | Discharge Summary ---
Date of Encounter: 12/16/16 Time of Encounter: 09:10 - Discharge Diagnosis (1) Confusion and disorientation Priority: Primary Status: Acute (2) Anemia Priority: Secondary Status: Acute Qualifiers: Anemia type: unspecified type Qualified Code(s): D64.9 - Anemia, unspecified (3) Azotemia Priority: Secondary Status: Acute (4) COPD (chronic obstructive pulmonary disease) Priority: Secondary Status: Chronic Qualifiers: COPD type: unspecified COPD Qualified Code(s): J44.9 - Chronic obstructive pulmonary disease, unspecified (5) Hypertension Priority: Secondary Status: Chronic Qualifiers: Hypertension type: essential hypertension Qualified Code(s): I10 - Essential (primary) hypertension - Discharge Medications Prescriptions: Bethanechol [Urecholine] 12.5 mg PO TID #6 tablet Donepezil [Aricept] 5 mg PO HS #30 tablet Home Medications: Amlodipine [Amlodipine Besylate] 5 mg PO BID 08/21/15 [History] Atorvastatin [Lipitor] 40 mg PO HS 08/21/15 [History] Clopidogrel [Plavix] 75 mg PO DAILY 08/21/15 [History] Metoprolol [Lopressor] 50 mg PO BID 08/21/15 [History] Omeprazole [PriLOSEC] 20 mg PO BIDAC 08/21/15 [History] Albuterol Sulfate [Albuterol Inhaler] 1 - 2 puff IH Q4-6H #1 inhaler 06/27/16 [ Rx] Bupropion HCl [Wellbutrin Xl] 300 mg PO DAILY 12/13/16 [History] Bethanechol [Urecholine] 12.5 mg PO TID #6 tablet 12/16/16 [Rx] Donepezil [Aricept] 5 mg PO HS #30 tablet 12/16/16 [Rx] Gabapentin [Neurontin] 300 mg PO BID #0 12/16/16 [Rx] Loratadine [Claritin] 10 mg PO DAILY PRN #0 12/16/16 [Rx] Allergies/Adverse Reactions: Allergies Sulfa (Sulfonamide Antibiotics) Adverse Reaction (Verified 08/21/15 14:50) Itching Procedures/tests Complete & Pending: Procedures Performed prior 72 hours Category Date Time Status CT abd pelvis wo no iv no oral [CT] Routine Cat Scan 12/13/16 17:[address] chest wo con [CT] Routine Cat Scan 12/13/16 17:07 Completed Date of admission: 12/13/16 12:11 Primary care physician: Helio Alexander MD Consults: 12/13/16 13:16 Consult to Nutrition [CONS] Routine Comment: Consulting Provider: NUTRITION Reason for Dietary Consult: MST Score Consult to Supervisor Cig[employer] Making Hand [CONS] Routine Reason for SW Consult: D/C planning - resources - pt has [employer] services and HH, but daughter feels that services are inadequate and company is not doing what they are supose to - Patient Status Disposition: Home, Self-Care Condition: Fair Functional capacity at discharge: independent ambulation Overall status at discharge: patient is progressing back to baseline - Discharge Instructions Follow Up With: Helio Alexander MD [Primary Care Provider] - - Diet and Activity Activity: resume usual activities as tolerated Diet: advance to your usual diet Hospital course: Ms. Carney is a 60 year old female who came to the hospital after family noted she was more confused and disoriented. She states she felt "dizzy" which she describes as lightheaded but denies vertigo. She states she feels disoriented. She was evaluated in emergency room and admitted to [facility] for ongoing care needs. Initial orders were written by the emergency room physician. I saw her on December 13 and performed a history and physical. Her confusion and disorientation improved during her hospital stay. A MMSE was given and her score was 21/30. She was started on Aricept and this was tolerated well. She will continue this at discharge. Anemia testing results were consistent with iron deficiency. She was given IV iron dextran. Plavix was continued. Her hemoglobin had risen to 8.0 the day of discharge from 7.5 the previous day. Her PCP can continue to monitor this. I told her she could discuss with her PCP referral for repeat endoscopy. Bladder scan showed urinary retention. Donahue catheter was inserted and she was started on Urecholine. The catheter was discontinued the morning of December 16 and she was able to void spontaneously. She will continue with Urecholine for 4 additional days at discharge a dose of 12.5 mg 3 times a day. Her PCP can monitor her for recurrent urinary retention. A 6 minute walk was done to evaluate for hypoxemia. She remained at satisfactory oxygenation level. On December 16 she was stable for discharge home. She will follow with her PCP within one week. - Time Spent with Patient Total time spent providing and/or coordinating discharge services: - Constitutional Vitals: Temp Pulse Resp BP Pulse Ox 98.3 F 70 16 151/81 94 12/16/16 07:03 12/16/16 07:03 12/16/16 07:03 12/16/16 07:03 12/16/16 07:03
--- NOTE | 2016-12-16 14:17 | Physician Discharge Referral ---
Home Health/Hosp Referral Info Transfer to: Home Health Attending Provider: Rancho Provider in Charge Post Discharge: PCP (Helio Alexander M.D.) - Diagnosis (1) Confusion and disorientation Priority: Primary Status: Acute (2) Anemia Priority: Secondary Status: Acute (3) Azotemia Priority: Secondary Status: Acute (4) COPD (chronic obstructive pulmonary disease) Priority: Secondary Status: Chronic (5) Hypertension Priority: Secondary Status: Chronic - Respiratory Orders Smoking Cessation: Smoking cessation has been advised. For more information, call the [place] Tobacco Quit Line at 3-953-QJSL-NOW. - Diet/Nutrition Diet/Nutrition Orders: Regular - Activity Activity Orders: Up ad cecilia - Services Needed Following services are medically necessary services: Nursing, Home Health Aide, Physical Therapy, Occupational Therapy - Transfer Medications Prescriptions: Bethanechol [Urecholine] 12.5 mg PO TID #6 tablet Donepezil [Aricept] 5 mg PO HS #30 tablet Home Medications: Amlodipine [Amlodipine Besylate] 5 mg PO BID 08/21/15 [History] Atorvastatin [Lipitor] 40 mg PO HS 08/21/15 [History] Clopidogrel [Plavix] 75 mg PO DAILY 08/21/15 [History] Metoprolol [Lopressor] 50 mg PO BID 08/21/15 [History] Omeprazole [PriLOSEC] 20 mg PO BIDAC 08/21/15 [History] Albuterol Sulfate [Albuterol Inhaler] 1 - 2 puff IH Q4-6H #1 inhaler 06/27/16 [ Rx] Bupropion HCl [Wellbutrin Xl] 300 mg PO DAILY 12/13/16 [History] Bethanechol [Urecholine] 12.5 mg PO TID #6 tablet 12/16/16 [Rx] Donepezil [Aricept] 5 mg PO HS #30 tablet 12/16/16 [Rx] Gabapentin [Neurontin] 300 mg PO BID #0 12/16/16 [Rx] Loratadine [Claritin] 10 mg PO DAILY PRN #0 12/16/16 [Rx] Allergies/Adverse Reactions: Allergies Sulfa (Sulfonamide Antibiotics) Adverse Reaction (Verified 08/21/15 14:50) Itching Certification: Further, I certify that my clinical findings support that this patient is homebound (i.e. absences from home require considerable and taxing effort and are for medical reasons or [facility] or infrequently or short duration when for other reasons) because: Homebound Reason: Altered mental status requiring supervision when leaving home (COPD, probable early dementia) Attestation: My signature below is to certify that this patient is under my care and that I, or nurse practitioner, or a physician's video library assistant working with me, has a face-to -face encounter with this patient.
== END 2016-12-16 12:35 | disposition home health service (06) ==
LOC: INPPIK 09:05 → EMEROOPIK 09:05 → INPPIK 12:16
PROVIDERS: ADMIT Internal Medicine; ATTEND Internal Medicine

== ENCOUNTER 2020-12-27 20:06 | Observation (INO) ==
[2020-12-27 20:43] LABS: Hematocrit 23.2 % (35.3-44.9); Hemoglobin 6.6 g/dL (11.5-15.4); Immature Granulocytes % 0.5 % (0-4); Lymphocytes # 0.5 K/mcL (0.6-4.6); Lymphocytes % 4.9 %; Mean Corpuscular HGB Conc 28.4 g/dL (31.6-35.5); Mean Corpuscular Hemoglobin 20.4 pg (28.0-33.3); Mean Corpuscular Volume 71.6 fL (83.0-100.0); Mean Platelet Volume 9.3 fL (9.4-12.4); Monocytes # 0.5 K/mcL (0.0-1.3); Monocytes % 5.5 %; Neutrophils # 8.6 K/mcL (1.6-8.9); Nucleated Red Blood Cells 0.7 /100 WBC (0); Platelet Count 305 K/mcL (140-400); Red Blood Count 3.24 M/mcL (3.82-4.97); Red Cell Distribution Width 18.5 % (11.5-14.5); Segmented Neutrophils % 89.1 %; White Blood Count 9.6 K/mcL (4.3-11.1)
[2020-12-27 20:46] LABS: ABG Base Excess 7 mEq/L (-2 to 3); ABG HCO3 34 mEq/L (21-27); ABG Oxygen Saturation 92 % (95-98); ABG PCO2 65 mmHg (35-45); ABG PH 7.33 pH Units (7.32-7.45); ABG PO2 73 mmHg (85-104); ABG TCO2 36 mEq/L (20-26)
[2020-12-27 20:50] LABS: Bilirubin,Urine Negative (Negative); Blood,Urine Negative (Negative); Clarity,Urine Slightly Cloudy (Clear); Glucose,Urine (UA) Normal (Normal); Ketones,Urine Negative (Negative); Leukocyte Esterase,Urine Trace (Negative); Nitrite,Urine Positive (Negative); PH,Urine 7.5 pH Units (5.0-8.0); Protein,Urine Negative (Neg-Trace); Specific Gravity,Urine 1.025 (1.010-1.025); Urobilinogen,Urine Normal (Normal)
[2020-12-27 20:54] LABS: Color,Urine Light Yellow (Yellow)
[2020-12-27 20:55] LABS: Prothrombin Time 11.6 Seconds (9.4-12.1)
[2020-12-27 21:05] LABS: Calcium 9.3 mg/dL (8.6-10.3); Potassium 4.5 mEq/L (3.5-5.1)
[2020-12-27 21:06] LABS: Anisocytosis 1+ (Not Present); Hypochromasia Present (Not Present); Microcytosis Present (Not Present); Troponin I 0.03 ng/mL (< 0.04)
[2020-12-27 21:07] LABS: Large Platelets Present (Not Present); Platelet Estimate Normal (Normal); Poikilocytosis 1+ (Not Present)
[2020-12-27 21:08] LABS: Polychromasia 1+ (Not Present)
[2020-12-27 21:10] LABS: Amorphous Sediment,Urine Few per hpf (None-Few); Bacteria,Urine Moderate per hpf (None-Few); RBC,Urine 0-3 per hpf (0-3); Squamous Epithelial Cell,Urine Few per hpf (None-Few); WBC,Urine 0-3 per hpf (0-3)
[2020-12-27 21:11] LABS: Transitional Epi Cells,Urine Few per hpf (None-Few)
[2020-12-27] MEDS ORDERED: cefTRIAXone 1,000 MG in 0.9 % Sodium Chloride Mini Bag 100 ML IVPB ONE (21:21)
[2020-12-27] MEDS ORDERED: Ondansetron ODT 4 MG TAB.RAPDIS SL PRN (22:37)
[2020-12-27] MEDS ORDERED: Mag Hydrox/Al Hydrox/Simeth 30 ML UDC PO PRN (22:37)
[2020-12-27] MEDS ORDERED: Naloxone 0.4 MG/ML INJ IVP PRN (22:37)
[2020-12-27] MEDS ORDERED: MOM Conc 10 ML UD.LIQ PO PRN (22:37)
[2020-12-27] MEDS ORDERED: 0.9 % Sodium Chloride 1,000 ML IVC SCH (22:37)
[2020-12-27] MEDS ORDERED: Albuterol 2.5 MG/3 ML NEBULIZER IH PRN (22:37)
[2020-12-27] MEDS ORDERED: Melatonin 3 MG TABLET PO PRN (22:37)
[2020-12-27] MEDS ORDERED: 0.9 % Sodium Chloride 250 ML ONE (22:49)
[2020-12-28] MEDS: Ipratropium/Albuterol Neb 3 ML IH SCH ×4 (03:48→21:42)
[2020-12-28] MEDS: hydrOXYzine pamoate 25 MG CAPSULE PO PRN ×2 (03:51→23:02)
[2020-12-28 06:33] LABS: Basophils % 0.1 %; Eosinophils % 0.2 %; Hematocrit 28.5 % (35.3-44.9); Hemoglobin 8.6 g/dL (11.5-15.4); Immature Granulocytes % 0.6 % (0-4); Lymphocytes # 1.1 K/mcL (0.6-4.6); Lymphocytes % 7.9 %; Mean Corpuscular HGB Conc 30.2 g/dL (31.6-35.5); Mean Corpuscular Hemoglobin 22.2 pg (28.0-33.3); Mean Corpuscular Volume 73.6 fL (83.0-100.0); Mean Platelet Volume 10.1 fL (9.4-12.4); Neutrophils # 11.4 K/mcL (1.6-8.9); Nucleated Red Blood Cells 0.2 /100 WBC (0); Platelet Count 288 K/mcL (140-400); Red Blood Count 3.87 M/mcL (3.82-4.97); Red Cell Distribution Width 19.8 % (11.5-14.5); Segmented Neutrophils % 84.2 %; White Blood Count 13.5 K/mcL (4.3-11.1)
[2020-12-28] MEDS: BuPROPion SR (12 HR) 150 MG TABLET PO SCH ×3 (08:05→21:00)
[2020-12-28] MEDS: GuaiFENesin/Dextromethorphan TABLET PO SCH ×2 (08:05→21:12)
[2020-12-28] MEDS: Aspirin Enteric Coated 81 MG Tablet PO SCH (08:05)
[2020-12-28] MEDS: amLODIPine 5 MG TABLET PO SCH ×2 (08:05→20:55)
[2020-12-28] MEDS: *HR* OxyCODONE Immed Rel 15 MG TABLET PO SCH ×4 (08:05→20:55)
[2020-12-28] MEDS: *HR* OxyCODONE Immed Rel 5 MG TABLET PO SCH ×4 (08:06→20:55)
[2020-12-28] MEDS: carvediloL 25 MG TABLET PO SCH ×2 (08:06→17:16)
[2020-12-28] MEDS: *HR* LORazepam 0.5 MG TABLET PO SCH ×4 (08:06→20:55)
[2020-12-28] MEDS: Valsartan 80 MG TABLET PO SCH (08:06)
[2020-12-28] MEDS: BETHANECHOL CHLORIDE 10 MG PO SCH ×2 (08:27→20:58)
[2020-12-28] MEDS ORDERED: cefTRIAXone 2,000 MG in 0.9 % Sodium Chloride Mini Bag 100 ML IVPB SCH (09:00)
[2020-12-28] MEDS: Budesonide/Formoterol 160/4.5 1 PUFF INH IH SCH ×2 (09:34→21:43)
[2020-12-28] MEDS: methylPREDNISolone 125 MG/2 ML VIAL IVP SCH ×3 (09:58→23:27)
[2020-12-28] MEDS: Furosemide 20 MG TABLET PO SCH (09:59)
[2020-12-28] MEDS: cefTRIAXone 2,000 MG in 0.9 % Sodium Chloride Mini Bag 100 ML IVPB SCH (13:24)
[2020-12-29] MEDS: *HR* OxyCODONE Immed Rel 15 MG TABLET PO SCH ×5 (00:08→22:02)
[2020-12-29] MEDS: *HR* OxyCODONE Immed Rel 5 MG TABLET PO SCH ×5 (00:08→22:02)
[2020-12-29] MEDS: Ipratropium/Albuterol Neb 3 ML IH SCH ×4 (04:28→21:24)
[2020-12-29] MEDS: Valsartan 80 MG TABLET PO SCH (07:53)
[2020-12-29] MEDS: Furosemide 20 MG TABLET PO SCH (07:53)
[2020-12-29] MEDS: Aspirin Enteric Coated 81 MG Tablet PO SCH (07:54)
[2020-12-29] MEDS: carvediloL 25 MG TABLET PO SCH ×2 (07:54→16:44)
[2020-12-29] MEDS: BuPROPion SR (12 HR) 150 MG TABLET PO SCH ×2 (07:54→22:02)
[2020-12-29] MEDS: GuaiFENesin/Dextromethorphan TABLET PO SCH ×2 (07:55→22:02)
[2020-12-29] MEDS: methylPREDNISolone 125 MG/2 ML VIAL IVP SCH ×2 (07:55→16:43)
[2020-12-29] MEDS: amLODIPine 5 MG TABLET PO SCH ×2 (07:55→22:02)
[2020-12-29] MEDS: *HR* LORazepam 0.5 MG TABLET PO SCH ×4 (07:55→22:02)
[2020-12-29] MEDS: BETHANECHOL CHLORIDE 10 MG PO SCH ×2 (07:56→22:08)
[2020-12-29 08:31] LABS: Hematocrit 28.1 % (35.3-44.9); Hemoglobin 8.3 g/dL (11.5-15.4); Mean Corpuscular HGB Conc 29.5 g/dL (31.6-35.5); Mean Corpuscular Hemoglobin 22.1 pg (28.0-33.3); Mean Corpuscular Volume 74.7 fL (83.0-100.0); Mean Platelet Volume 10.6 fL (9.4-12.4); Platelet Count 270 K/mcL (140-400); Red Blood Count 3.76 M/mcL (3.82-4.97); Red Cell Distribution Width 20.7 % (11.5-14.5); White Blood Count 13.6 K/mcL (4.3-11.1)
[2020-12-29 09:26] LABS: Calcium 9.1 mg/dL (8.6-10.3); Magnesium 2.4 mg/dL (1.6-2.6); Potassium 3.9 mEq/L (3.5-5.1)
[2020-12-29] MEDS: Budesonide/Formoterol 160/4.5 1 PUFF INH IH SCH ×2 (10:12→21:24)
[2020-12-29] MEDS: cefTRIAXone 2,000 MG in 0.9 % Sodium Chloride Mini Bag 100 ML IVPB SCH (13:54)
[2020-12-30] MEDS: Ipratropium/Albuterol Neb 3 ML IH SCH (03:08)
[2020-12-30 06:05] VITALS: BP 168/82
[2020-12-30] MEDS: Aspirin Enteric Coated 81 MG Tablet PO SCH (07:46)
[2020-12-30] MEDS: Valsartan 80 MG TABLET PO SCH (07:46)
[2020-12-30] MEDS: GuaiFENesin/Dextromethorphan TABLET PO SCH (07:47)
[2020-12-30] MEDS: *HR* OxyCODONE Immed Rel 5 MG TABLET PO SCH (07:47)
[2020-12-30] MEDS: BuPROPion SR (12 HR) 150 MG TABLET PO SCH (07:47)
[2020-12-30] MEDS: carvediloL 25 MG TABLET PO SCH (07:47)
[2020-12-30] MEDS: *HR* LORazepam 0.5 MG TABLET PO SCH (07:47)
[2020-12-30] MEDS: amLODIPine 5 MG TABLET PO SCH (07:47)
[2020-12-30] MEDS: *HR* OxyCODONE Immed Rel 15 MG TABLET PO SCH (07:48)
[2020-12-30] MEDS: Furosemide 20 MG TABLET PO SCH (07:48)
[2020-12-30] MEDS: BETHANECHOL CHLORIDE 10 MG PO SCH (07:48)
== END 2020-12-30 09:15 ==
LOC: EMEROOPIK 20:06 → INPPIK 20:06
PROVIDERS: ADMIT Family Medicine; ATTEND Family Medicine